=== PATIENT | female | born 1970 | race Caucasian/White ===

== ENCOUNTER 2020-02-19 08:27 | Day surgery (SDC) | payer MEDICAID ==
[2020-02-13 15:02] LABS: BASOPHILS # (AUTO) 0.1 X10'3 (0-0.2); BASOPHILS % (AUTO) 1.1 % (0-1); EOSINOPHILS # (AUTO) 0.2 X10'3 (0-0.9); EOSINOPHILS % (AUTO) 1.6 % (0-6); LYMPHOCYTES % (AUTO) 37.9 % (21-51); MEAN CORPUSCULAR HEMOGLOBIN 31.7 PG (27.0-31.0); MEAN CORPUSCULAR HGB CONC 33.3 g/dL (33.0-36.5); MEAN CORPUSCULAR VOLUME 95.4 FL (78-98); MEAN PLATELET VOLUME 8.3 FL (7.4-10.4); MONOCYTES # (AUTO) 0.7 X10'3 (0-0.9); MONOCYTES % (AUTO) 6.4 % (2-12); NEUTROPHILS # (AUTO) 5.6 X10'3 (1.8-7.7); PRE OP HEMATOCRIT 43.4 % (35.0-45.0); PRE OP HEMOGLOBIN 14.4 g/dL (12.0-16.0); PRE OP PLATELET COUNT 292 X10'3 (140-440); RED BLOOD COUNT 4.55 X10'6 (4.20-5.60); RED CELL DISTRIBUTION WIDTH 13.8 % (11.5-14.5)
[2020-02-13 15:18] LABS: ALBUMIN 3.5 G/DL (3.4-5.0); ALKALINE PHOSPHATASE 58 IU/L (46-116); BLOOD UREA NITROGEN 12 MG/DL (7-18); BUN/CREATININE RATIO 12.8 (6.6-38.0); CALCIUM 9.1 MG/DL (8.5-10.1); CHLORIDE 106 MMOL/L (99-107); CREATININE 0.94 MG/DL (0.40-0.90); PRE OP ALT 22 U/L (30-65); PRE OP ANION GAP 9 (8-16); PRE OP AST 15 U/L (10-37); PRE OP BILIRUB, TOTAL 0.3 MG/DL (0.0-1.0); PRE OP GLUCOSE 96 MG/DL (70-104); PRE OP POTASSIUM 4.3 MMOL/L (3.4-5.1); PRE OP SODIUM 141 MMOL/L (135-145); TOTAL PROTEIN 6.9 G/DL (6.4-8.2); eGFR 63 ML/MIN
[~2020-02-19] VITALS: Ht 160 cm; Wt 77.6 kg
[~2020-02-19 08:27] MED LIST: ALBU2.5V13 INH; ALBU90AE; BUPIVAcaine/PF 2.5mg/ml (0.25%) 10ml vial ONE; BUPR1FIL3 SL; albuterol 2.5 MG/3 ML nebule NEB ONE; clindamycin-Cleocin 900mg/D5W 50 ML IV ONE; famotidine 20mg tablet PO ONE; ringers solution, lacted 1,000 ML IV SCH
[2020-02-19 08:30] VITALS: BP 115/72
[2020-02-19] MEDS ORDERED: ringers solution, lacted 1,000 ML IV SCH (08:53)
[2020-02-19] MEDS ORDERED: morphine 2 MG/ML inj. syringe IV PRN (08:55)
[2020-02-19] MEDS ORDERED: hydrALAZINE 20mg/ml inj. IV PRN (08:55)
[2020-02-19] MEDS ORDERED: fentaNYL/PF 50MCG/1 ML 2ML syringe IV PRN ×2 (08:55)
[2020-02-19] MEDS ORDERED: labetalol 20mg/4ml (5mg/ml) syringe IV PRN (08:55)
[2020-02-19] MEDS ORDERED: ondansetron/PF 4mg/2ml inj IV PRN (08:55)
[2020-02-19] MEDS ORDERED: morphine 4 MG/ML inj SYRINge IV PRN (08:55)
[2020-02-19] MEDS ORDERED: LIDOcaine 0.5% (5mg/ml) 50ml vial ONE (10:49)
[2020-02-19] MEDS ORDERED: ketorolac trometh. 30mg/ml inj. ONE (10:51)
[2020-02-19] MEDS ORDERED: MIDAZolam 5mg/5ml vial ONE (10:51)
[2020-02-19] MEDS ORDERED: LIDOcaine 2% (20mg/ml) 5ml vial ONE (10:51)
[2020-02-19] MEDS ORDERED: propofol inj 20 ML IV ONE (10:51)
[2020-02-19] MEDS ORDERED: fentaNYL/PF 50MCG/1 ML 2ML syringe ONE (10:51)
[2020-02-19 11:25] VITALS: BP 111/75
--- NOTE | 2020-02-19 11:25 | NUR ---
Received from OR via BED, accompanied by Anesthesiologist DR SAMUEL and report given by Anesthesiolgist. PATIENT A&OX4, DENIES PAIN, V/S WNL, NEUROVASCULAR CHECKS INTACT, SCD ON, LEFT WRIST DRESSING CDI ELEVATED WITH ICE BAG APPLIED. 20G RUE PIV
[2020-02-19 11:35] VITALS: BP 125/77
[2020-02-19 11:45] VITALS: BP 121/71
[2020-02-19 11:55] VITALS: BP 128/73
--- NOTE | 2020-02-19 11:55 | NUR ---
PATIENT A&OX4, DENIES PAIN, V/S WNL, NEUROVASCULAR CHECKS INTACT, SCD OFF, RLEFT WRIST DRESSING CDI ELEVATED WITH ICE BAG APPLIED. 20G RUE D/C WITH NO COMPLICATIONS OBSERVED. I HAVE REVIEWED D/C INSTRUCTIONS WITH PATIENT AND FAMILY AND THEY HAVE VERBALIZED UNDERSTANDING. PATIENT D/C HOME WITH FAMILY TO TRANSPORT AND ALL BELONGINGS
== END 2020-02-19 11:55 | disposition home or self-care (01) ==
LOC: PAS 08:27
PROVIDERS: ATTEND Orthopaedic Surgery Hand Surgery
DX: M67.432 Ganglion, left wrist (principal); F32.9 Major depressive disorder, single episode, unspecified; J44.9 Chronic obstructive pulmonary disease, unspecified; M19.90 Unspecified osteoarthritis, unspecified site; M41.9 Scoliosis, unspecified; Z88.0 Allergy status to penicillin; Z88.1 Allergy status to other antibiotic agents; Z88.5 Allergy status to narcotic agent; Z79.899 Other long term (current) drug therapy; F17.210 Nicotine dependence, cigarettes, uncomplicated; Z90.49 Acquired absence of other specified parts of digestive tract; Z98.890 Other specified postprocedural states; Z11.59 Encounter for screening for other viral diseases
CPT/HCPCS: 25111; 36415; 80053; 82948; 85025; 93005; A6222; J1885; J2001; J2250; J2704; J3010; J3490; U0003; A4215; A6449; A7000; J7120